=== PATIENT | female | born 1980 | race Hispanic/Latino ===

== ENCOUNTER 2021-12-22 08:51 | Day surgery (SDC) | payer OTHER ==
[2021-12-17 11:39] VITALS: BMI 25.6
[2021-12-22] MEDS ORDERED: Oxymetazoline HCl 0.05% (30 ML BOT) ONE ×2 (09:57→10:51)
[2021-12-22] MEDS ORDERED: Lidocaine 1% w/Epinephrine 1:100K 20 ML VIAL ONE (10:51)
[2021-12-22] MEDS ORDERED: fentaNYL Citrate/PF 100 MCG/2 ML SYRINGE ONE ×2 (10:57)
[2021-12-22] MEDS ORDERED: Midazolam HCl 2 mg/2 ml Vial ONE (10:57)
[2021-12-22 11:07] LABS: BHCG - Serum Negative (NEGATIVE); Pregs Control Background? CLEAR/WHITE (CLR/WHITE); Pregs Control Bar Appear? YES (CONTROL BAR)
[2021-12-22] MEDS ORDERED: Ondansetron PF 4 MG/2 ML Vial ONE (11:43)
[2021-12-22] MEDS ORDERED: Dexamethasone 20 MG/5 ML VIAL ONE (11:43)
[2021-12-22] MEDS ORDERED: ePHEDrine 50 MG/ML VIAL ONE (11:43)
[2021-12-22] MEDS ORDERED: Lidocaine 1% PF 5 ML VIAL ONE (11:43)
[2021-12-22] MEDS ORDERED: PROPOFOL 200 MG/20 ML VIAL ONE (11:43)
[2021-12-22] MEDS ORDERED: Hydrocodone-Acetamin 15 ML UDCUP ONE (14:10)
== END 2021-12-22 15:01 | disposition home or self-care (01) ==
LOC: SDC 08:51
PROVIDERS: ATTEND Otolaryngology Plastic Surgery within the Head & Neck
PROC: 099Q8ZZ Drainage of Right Maxillary Sinus, Via Natural or Artificial Opening Endoscopic (ICD-10-PCS; principal; 2021-12-22)
PROC: 09BS8ZZ Excision of Right Frontal Sinus, Via Natural or Artificial Opening Endoscopic (ICD-10-PCS; principal; 2021-12-22)
PROC: 099R8ZZ Drainage of Left Maxillary Sinus, Via Natural or Artificial Opening Endoscopic (ICD-10-PCS; principal; 2021-12-22)
PROC: 09BT8ZZ Excision of Left Frontal Sinus, Via Natural or Artificial Opening Endoscopic (ICD-10-PCS; principal; 2021-12-22)
PROC: 09CW8ZZ Extirpation of Matter from Right Sphenoid Sinus, Via Natural or Artificial Opening Endoscopic (ICD-10-PCS; principal; 2021-12-22)
PROC: 09BU8ZZ Excision of Right Ethmoid Sinus, Via Natural or Artificial Opening Endoscopic (ICD-10-PCS; principal; 2021-12-22)
PROC: 09BV8ZZ Excision of Left Ethmoid Sinus, Via Natural or Artificial Opening Endoscopic (ICD-10-PCS; principal; 2021-12-22)
PROC: 09BL8ZZ Excision of Nasal Turbinate, Via Natural or Artificial Opening Endoscopic (ICD-10-PCS; principal; 2021-12-22)
DX: J32.9 Chronic sinusitis, unspecified (principal); J34.3 Hypertrophy of nasal turbinates; J34.89 Other specified disorders of nose and nasal sinuses; Z79.899 Other long term (current) drug therapy; Z20.822 Contact with and (suspected) exposure to COVID-19
CPT/HCPCS: 84703; 85014; 87811; J1100; J2250; J2405; J2704; J3490